=== PATIENT | male | born 1990 | race Caucasian/White ===

== ENCOUNTER 2016-08-05 13:15 | Emergency (ER) | payer MEDICAID, OTHER ==
[~2016-08-05] VITALS: Ht 172.7 cm; Wt 81.5 kg
[2016-08-05 13:29] VITALS: Ht 172.7 cm; Wt 81.5 kg
[2016-08-05] MEDS ORDERED: LIDOCAINE 2% (MDV) 20 ML INJ INJ ONE (14:30)
[2016-08-05] MEDS ORDERED: CLIN-73 PO (15:29)
--- NOTE | 2016-08-05 15:37 | ERD ---
ER Documentation Chief Complaint Date/Time DATE: 08/05/16 TIME: 15:37 Chief Complaint left facial abscess, has been taking bactrim for 2 weeks HPI This is a 26 y.o male that presents to the ER stating he has had a "bump" on the left side of his face for the last 2 weeks. Patient went to [facility] and was given Bactrim, however he states it is not helping. Patient stats that he still has the bump and that it is more painful. He denies any fever or chills. He denies any headaches. Patient denies any discharge from the area. ROS All systems reviewed and are negative except as per history of present illness. Medications Home Meds Active Scripts Clindamycin Hcl* (Clindamycin Hcl*) 300 Mg Capsule, 300 MG PO TID for 10 Days, CAP Prov:JADENEDER 08/05/16 Allergies Allergies: Coded Allergies: No Known Allergy (Unverified , 08/05/16) PMhx/Soc Medical and Surgical Hx: pt denies Medical Hx, pt denies Surgical Hx Hx Alcohol Use: No Hx Substance Use: No Hx Tobacco Use: No Smoking Status: Never smoker Physical Exam Vitals Vital Signs Date Time Temp Pulse Resp B/P Pulse Ox O2 Delivery O2 Flow Rate FiO2 08/05/16 13:29 98.6 81 18 139/69 99 Physical Exam Const: [] Head: Atraumatic Eyes: Normal Conjunctiva ENT: Normal External Ears, Nose and Mouth. There is no facial swelling, no proptosis. There is a 3cm* cm area of fluctuance that is TTP. There is no erythema our surrounding erythema. Resp: Clear to auscultation bilaterally Cardio: Regular rate and rhythm, no murmurs Skin: No petechiae or rash Neur: Awake and alert Psych: Normal Mood and Affect Results 24 hrs Current Medications Medications (Trade) Dose Ordered Sig/Rajesh Route PRN Reason Start Time Stop Time Status Last Admin Dose Admin Lidocaine (Xylocaine 2% (Mdv) 20 ml) 20 ml ONCE ONCE INJ 08/05/16 14:30 08/05/16 14:31 DC Procedures/MDM Abscess Incision and Drainage with irrigation by me: Location: left cheek Anesthesia: Local 2% Lidocaine Technique: Irrigated. Disrupted loculations w/ instrumentation. Rancid cheese like yellow discharge was expressed Packing: none Complications: Neurovascularly intact post procedure 48 hour wound check. Scar minimization instructions given. Patient's skin symptoms have stabilized while they have been evaluated in the department and are appropriate for outpatient care and work up. Exam and w/u not consistent w/ sepsis, deep space infection, or foreign body. This patient was examined by myself and by Dr. Stephens. Differential diagnosis includes but is not limited to; abscess, cellulitis, sabaceous cyst, infection sabaceous cyst, deep cavernous thrombosis. This is likely and infected sabaceous cyst. Area was incised and drained without any complications. Possibility of scar was thourouhgly explained to the patient as this cyst is on his face. Patient understands the risks vs the benefits of the procedure and consented to move forward with the incision and drainage. Please see procedure note. Since this is a sabaceous cyst we explained to patient that he would need the sack removed as this will likely come back. He urgently needs to see an ENT doctor. Patient was sent home with clindamycin and he was also given referrals to ENT doctors. At this time suspicion for deep cavernous thrombosis is low. Patient is afebrile and well appearing with no facial swelling and localized pain to the area. Patient needs to f/u with his PCP within 1-2 days or return to ER sooner if symptoms worsen. My medical decision making was shared with the patient he understands and agrees with plan. Departure Diagnosis: Primary Impression: Infected sebaceous cyst Condition: Stable Patient Instructions: Sebaceous Cyst, Infected (I And D) Referrals: ALONDRA DELUCA MD, [facility] YOU HAVE RECEIVED A MEDICAL SCREENING EXAM AND THE RESULTS INDICATE THAT YOU DO NOT HAVE A CONDITION THAT REQUIRES URGENT TREATMENT IN THE EMERGENCY DEPARTMENT. FURTHER EVALUATION AND TREATMENT OF YOUR CONDITION CAN WAIT UNTIL YOU ARE SEEN IN YOUR DOCTORS OFFICE WITHIN THE NEXT 1-2 DAYS. IT IS YOUR RESPONSIBILITY TO MAKE AN APPOINTMENT FOR FOLOW-UP CARE. IF YOU HAVE A PRIMARY DOCTOR --you should call your primary doctor and schedule an appointment IF YOU DO NOT HAVE A PRIMARY DOCTOR YOU CAN CALL OUR PHYSICIAN REFERRAL HOTLINE AT IF YOU CAN NOT AFFORD TO SEE A PHYSICIAN YOU CAN CHOSE FROM THE FOLLOWING [facility] [address] [facility]. [facility] [address] [facility] [facility] [address] [facility] [address] [facility] [address] [facility]. [facility] [address] Additional Instructions: Return to this facility in 2 DAYS for a follow-up exam.Return sooner if your condition worsens. YOU NEED TO GO TO A COMMUNITY CLINIC AND GET A REFERRAL FOR AN EARS NOSE THROAT DOCTOR! I INCLUDED 2 NAMES OF DOCTORS. EDER STANLEY August 05, 2016 15:37
== END 2016-08-05 15:46 | disposition home or self-care (01) ==
LOC: FTE 13:15
DX: L72.3 Sebaceous cyst (principal); L08.9 Local infection of the skin and subcutaneous tissue, unspecified
CPT/HCPCS: 10061; Z7502